=== PATIENT | male | born 2000 | race Caucasian/White ===

== ENCOUNTER 2021-12-17 23:00 | Emergency (ER) | payer BC ==
[2021-12-17] MEDS: Ondansetron 4 MG/2 ML SDV IVPUSH ONE (23:36)
[2021-12-17] MEDS: Ketorolac 30 MG/ML SDV IVPUSH ONE (23:36)
[2021-12-17] MEDS: Sodium Chloride 0.9% 1,000 ML IV ONE (23:37)
[2021-12-18 00:03] LABS: BLOOD UREA NITROGEN,BUN 12 mg/dL (7.0-18.0); CARBON DIOXIDE,CO2 26.7 mmol/L (21.0-32.0); CHLORIDE,CL 104 mmol/L (98-107); GLUCOSE RANDOM 93 mg/dL (74-106); POTASSIUM,K 3.9 mmol/L (3.5-5.1); SODIUM,NA 141 mmol/L (136-148)
== END 2021-12-18 00:21 | disposition home or self-care (01) ==
LOC: MW.ED 23:00
DX: R10.9 Unspecified abdominal pain (principal); Z87.442 Personal history of urinary calculi
CPT/HCPCS: 36415; 74176; 80053; 81003; 85025; 96374; 96375; 99284; J1885; J2405; J7030; 99283

== ENCOUNTER 2023-09-30 23:57 | Emergency (ER) | payer SELFPAY ==
[2023-10-01 01:24] LABS: CORONAVIRUS COVID-19 NAA NEGATIVE (NEGATIVE); INFLUENZA A NAA NEGATIVE (NEGATIVE); INFLUENZA B NAA NEGATIVE (NEGATIVE); RESPIRATORY SYNCYTIAL VIR NAA NEGATIVE (NEGATIVE)
== END 2023-10-01 01:38 | disposition home or self-care (01) ==
LOC: MW.ED 23:57
DX: S09.90XA Unspecified injury of head, initial encounter (principal); Z20.822 Contact with and (suspected) exposure to COVID-19; W22.8XXA Striking against or struck by other objects, initial encounter; Y93.01 Activity, walking, marching and hiking
CPT/HCPCS: 0241U; 70450; 99285; 99282